=== PATIENT | female | born 1960 | race Caucasian/White ===

== ENCOUNTER 2019-08-18 19:12 | Emergency (ER) | payer BC ==
[~2019-08-18] VITALS: Ht 157.5 cm; Wt 54.9 kg
[2019-08-18 19:24] VITALS: Ht 157.5 cm; Wt 54.9 kg
[2019-08-18 20:24] VITALS: BP 162/88
== END 2019-08-18 20:24 | disposition home or self-care (01) ==
LOC: ED 19:12
DX: T23.102A Burn of first degree of left hand, unspecified site, initial encounter (principal); W86.8XXA Exposure to other electric current, initial encounter; Y93.89 Activity, other specified; Y92.89 Other specified places as the place of occurrence of the external cause; Y99.8 Other external cause status
CPT/HCPCS: J2270